=== PATIENT | female | born 1970 | race African-American/Black ===

== ENCOUNTER 2023-04-04 11:35 | Inpatient (IN) | payer MEDICARE, OTHER ==
[2023-04-04] MEDS ORDERED: ASPIRIN 81 MG PO STA (12:26)
[2023-04-04] MEDS ORDERED: NITROGLYCERIN OINT 1 INCH/GM PACKET TOPICAL STA (12:26)
--- NOTE | 2023-04-04 12:42 | ED ---
General Adult HPI - General Chief complaint: Chest Pain Stated complaint: chest pain Time Seen by Provider: 04/04/23 12:00 Source: patient, RN notes reviewed, old records reviewed Mode of arrival: ambulatory Limitations: no limitations - History of Present Illness Initial comments: This is a 52-year-old female presents emergency Department complaining of chest pain radiates to her left shoulder. Patient states this started at the facility that she was standing up. Patient is in rehab for alcohol abuse. Patient states she hasn't had a drink in over a month. Patient states associated with the chest pain and shortness of breath. Patient has also noticed edema of the legs. Patient states she has never had a heart attack in the past. But she has had a stroke 3 years ago. Patient denies any recent fever chills or cough per patient denies any abdominal pain. Patient has any headache patient denies numbness weakness. Patient states she took an aspirin prior to arrival and when she got here the chest pain had resolved. Patient did not take any nitroglycerin. - Related Data Home Medications Medication Instructions Recorded Confirmed Acetaminophen Tab [Tylenol] 650 mg PO Q4H PRN 04/04/23 04/04/23 Atorvastatin Calcium [Lipitor] 40 mg PO HS 04/04/23 04/04/23 Calcium/Magnesium/Zinc/Vitamin D 1 tab PO TID PRN 04/04/23 04/04/23 334/134/5mg Escitalopram [Lexapro] 20 mg PO DAILY 04/04/23 04/04/23 Folic Acid 1 mg PO DAILY 04/04/23 04/04/23 Insulin Regular, Human [Novolin R] See Protocol SQ ACHS 04/04/23 04/04/23 Lipase/Protease/Amylase [Doe Alonso 72,000 unit PO BID 04/04/23 04/04/23 36,000 Unit Capsule] Mirtazapine [Remeron] 15 mg PO HS 04/04/23 04/04/23 OLANZapine [ZyPREXA] 15 mg PO HS 04/04/23 04/04/23 Pantoprazole Sodium [Protonix] 40 mg PO DAILY 04/04/23 04/04/23 Sucralfate [Carafate] 1 gm PO TID-W/MEALS 04/04/23 04/04/23 Thiamine [Vitamin B-1] 100 mg PO DAILY 04/04/23 04/04/23 amLODIPine [Norvasc] 10 mg PO DAILY 04/04/23 04/04/23 busPIRone HCl [Buspar] 10 mg PO TID 04/04/23 04/04/23 levETIRAcetam [Keppra] 500 mg PO BID 04/04/23 04/04/23 traZODone HCL 100 mg PO HS 04/04/23 04/04/23 Allergies Allergy/AdvReac Type Severity Reaction Status Date / Time lisinopril Allergy Anaphylaxis Verified 04/04/23 14:36 /Rash/Hives Review of Systems ROS Statement: Those systems with pertinent positive or pertinent negative responses have been documented in the HPI. ROS Other: All systems not noted in ROS Statement are negative. Past Medical History Past Medical History: Diabetes Mellitus, Hypertension Additional Past Medical History / Comment(s): pancreatitis, ETOH abuse, type II DM History of Any Multi-Drug Resistant Organisms: None Reported Past Surgical History: Bowel Resection Past Psychological History: No Psychological Hx Reported Smoking Status: Current every day smoker, Vaper Past Alcohol Use History: Abuse, Daily Past Drug Use History: Marijuana General Exam - General Exam Comments Initial Comments: GENERAL: Patient is well-developed and well-nourished. Patient is nontoxic and well- hydrated and is in no acute distress. ENT: Neck is soft and supple. No significant lymphadenopathy is noted. Oropharynx is clear. Moist mucous membranes. Neck has full range of motion without eliciting any pain. EYES: The sclera were anicteric and conjunctiva were pink and moist. Extraocular movements were intact and pupils were equal round and reactive to light. Eyelids were unremarkable. PULMONARY: Unlabored respirations. Good breath sounds bilaterally. No audible rales rhonchi or wheezing was noted. CARDIOVASCULAR: There is a regular rate and rhythm without any murmurs gallops or rubs. ABDOMEN: Soft and nontender with normal bowel sounds. No palpable organomegaly was noted. There is no palpable pulsatile mass. SKIN: Skin is clear with no lesions or rashes and otherwise unremarkable. NEUROLOGIC: Patient is alert and oriented x3. Cranial nerves II through XII are grossly intact. Motor and sensory are also intact. Normal speech, volume and content. Symmetrical smile. MUSCULOSKELETAL: Normal extremities with adequate strength and full range of motion. No lower extremity swelling or edema. No calf tenderness. LYMPHATICS: No significant lymphadenopathy is noted PSYCHIATRIC: Normal psychiatric evaluation. Limitations: no limitations Course Vital Signs 04/04/23 11:47 Temperature 97.9 F Pulse Rate 89 Respiratory 16 Rate Blood Pressure 134/101 O2 Sat by Pulse 100 Oximetry Medical Decision Making - Medical Decision Making EKG is interpreted by myself. EKG shows a sinus rhythm at 72 bpm GA interval 140 QRS is 84 QT interval 392 QTC is 422 per patient's EKG shows no ST segment elevation or depression. Was pt. sent in by a medical professional or institution (, PA, COOKER HELPER, urgent care, hospital, or detention...) When possible be specific @ -Patient was sent in by [facility] Did you speak to anyone other than the patient for history (EMS, parent, family, police, friend...)? What history was obtained from this source @ -No Did you review nursing and triage notes (agree or disagree)? Why? @ -I reviewed and agree with nursing and triage notes Were old charts reviewed (outside hosp., previous admission, EMS record, old EKG, old radiological studies, urgent care reports/EKG's, detention records)? Report findings @ -No old charts were reviewed Differential Diagnosis (chest pain, altered mental status, abdominal pain women, abdominal pain men, vaginal bleeding, weakness, fever, dyspnea, syncope, headache, dizziness, GI bleed, back pain, seizure, CVA, palpatations, mental health, musculoskeletal)? @ -Differential Chest Pain: Stable Angina, Unstable Angina, STEMI, NSTEMI Aortic Dissection, Pneumothorax, Musculoskeletal, Esophageal Spasm GERD, Cholecystitis, Pancreatitis, Zoster, this is not meant to be an all-inclusive list. EKG interpreted by me (3pts min.). @ -As above X-rays interpreted by me (1pt min.). @ -Chest x-ray showed no acute abnormality CT interpreted by me (1pt min.). @ -None done U/S interpreted by me (1pt. min.). @ -None done What testing was considered but not performed or refused? (CT, X-rays, U/S, labs)? Why? @ -None What meds were considered but not given or refused? Why? @ -None Did you discuss the management of the patient with other professionals (professionals i.e. , PA, COOKER HELPER, lab, RT, psych nurse, nursing home social worker, belting cutter, teacher, contracts officer, sample case porter)? Give summary @ -I spoke with the [facility] hospitalist agreed to admit the patient admitted the patient wrote admitting orders Was smoking cessation discussed for >3mins.? @ -No Was critical care preformed (if so, how long)? @ -No Were there social determinants of health that impacted care today? How? (Homelessness, low income, unemployed, alcoholism, drug addiction, transportation, low edu. Level, literacy, decrease access to med. care, [facility], rehab)? @ -No Was there de-escalation of care discussed even if they declined (Discuss DNR or withdrawal of care, Hospice)? DNR status @ -No What co-morbidities impacted this encounter? (DM, HTN, Smoking, COPD, CAD, Cancer, CVA, ARF, Chemo, Hep., AIDS, mental health diagnosis, sleep apnea, morbid obesity)? @ -None Was patient admitted / discharged? Hospital course, mention meds given and route, prescriptions, significant lab abnormalities, going to OR and other pertinent info. @ -Patient's lab work came back within normal range. Patient was no longer having any chest pain during the emergency department. Patient received Nitropaste and will receive aspirin and Nitropaste on the floor. I admitted the patient he seems to hospice wrote admitting orders I consulted cardiology. Undiagnosed new problem with uncertain prognosis? @ -No Drug Therapy requiring intensive monitoring for toxicity (Heparin, Nitro, Insulin, Cardizem)? @ -No Were any procedures done? @ -No Diagnosis/symptom? @ -Chest pain Acute, or Chronic, or Acute on Chronic? @ -Acute Uncomplicated (without systemic symptoms) or Complicated (systemic symptoms)? @ -Complicated Side effects of treatment? @ -No Exacerbation, Progression, or Severe Exacerbation? @ -No Poses a threat to life or bodily function? How? (Chest pain, [place], [place], pneumonia, PE, COPD, DKA, ARF, appy, cholecystitis, CVA, Diverticulitis, Homicidal, Suicidal, threat to staff... and all critical care pts) @ -Yes this can lead to an [place] and her cardiac perfusion and end organ dy sfunction - Lab Data Result diagrams: 04/04/23 13:18 04/04/23 13:18 Lab Results 04/04/23 04/04/23 04/04/23 Range/Units 13:18 13:18 13:18 WBC 4.9 (3.8-10.6) k/uL RBC 3.85 (3.80-5.40) m/uL Hgb 11.1 L (11.4-16.0) gm/dL Hct 35.0 (34.0-46.0) % MCV 91.1 (80.0-100.0) fL MCH 29.0 (25.0-35.0) pg MCHC 31.8 (31.0-37.0) g/dL RDW 16.2 H (11.5-15.5) % Plt Count 152 (150-450) k/uL MPV 9.0 Neutrophils % 32 % Lymphocytes % 58 % Monocytes % 4 % Eosinophils % 3 % Basophils % 0 % Neutrophils # 1.6 (1.3-7.7) k/uL Lymphocytes # 2.9 (1.0-4.8) k/uL Monocytes # 0.2 (0-1.0) k/uL Eosinophils # 0.2 (0-0.7) k/uL Basophils # 0.0 (0-0.2) k/uL Hypochromasia Slight Anisocytosis Slight PT 11.1 (9.0-12.0) sec INR 1.1 (<1.2) APTT 25.9 (22.0-30.0) sec Sodium 140 (137-145) mmol/L Potassium 3.4 L (3.5-5.1) mmol/L Chloride 104 (98-107) mmol/L Carbon Dioxide 28 (22-30) mmol/L Anion Gap 8 mmol/L BUN 5 L (7-17) mg/dL Creatinine 0.42 L (0.52-1.04) mg/dL Est GFR (CKD-EPI)AfAm >90 (>60 ml/min/1.73 sqM) Est GFR (CKD-EPI)NonAf >90 (>60 ml/min/1.73 sqM) Glucose 111 H (74-99) mg/dL Calcium 8.1 L (8.4-10.2) mg/dL Magnesium 0.9 L* (1.6-2.3) mg/dL Total Bilirubin 0.4 (0.2-1.3) mg/dL AST 34 (14-36) U/L ALT 18 (4-34) U/L Alkaline Phosphatase 75 (38-126) U/L Troponin I (0.000-0.034) ng/mL NT-Pro-B Natriuret Pep 164 pg/mL Total Protein 5.7 L (6.3-8.2) g/dL Albumin 2.9 L (3.5-5.0) g/dL 04/04/23 Range/Units 13:18 WBC (3.8-10.6) k/uL RBC (3.80-5.40) m/uL Hgb (11.4-16.0) gm/dL Hct (34.0-46.0) % MCV (80.0-100.0) fL MCH (25.0-35.0) pg MCHC (31.0-37.0) g/dL RDW (11.5-15.5) % Plt Count (150-450) k/uL MPV Neutrophils % % Lymphocytes % % Monocytes % % Eosinophils % % Basophils % % Neutrophils # (1.3-7.7) k/uL Lymphocytes # (1.0-4.8) k/uL Monocytes # (0-1.0) k/uL Eosinophils # (0-0.7) k/uL Basophils # (0-0.2) k/uL Hypochromasia Anisocytosis PT (9.0-12.0) sec INR (<1.2) APTT (22.0-30.0) sec Sodium (137-145) mmol/L Potassium (3.5-5.1) mmol/L Chloride (98-107) mmol/L Carbon Dioxide (22-30) mmol/L Anion Gap mmol/L BUN (7-17) mg/dL Creatinine (0.52-1.04) mg/dL Est GFR (CKD-EPI)AfAm (>60 ml/min/1.73 sqM) Est GFR (CKD-EPI)NonAf (>60 ml/min/1.73 sqM) Glucose (74-99) mg/dL Calcium (8.4-10.2) mg/dL Magnesium (1.6-2.3) mg/dL Total Bilirubin (0.2-1.3) mg/dL AST (14-36) U/L ALT (4-34) U/L Alkaline Phosphatase (38-126) U/L Troponin I <0.012 (0.000-0.034) ng/mL NT-Pro-B Natriuret Pep pg/mL Total Protein (6.3-8.2) g/dL Albumin (3.5-5.0) g/dL Disposition Clinical Impression: Chest pain, Hypomagnesemia Disposition: ADMITTED IP TO THIS [facility] Time of Disposition: 14:05
[2023-04-04 13:28] LABS: Anisocytosis Slight; Basophils % (A) 0 %; Eosinophils # (A) 0.2 k/uL (0-0.7); Eosinophils % (A) 3 %; HGB 11.1 gm/dL (11.4-16.0); Hypochromasia Slight; Lymphocytes # (A) 2.9 k/uL (1.0-4.8); Lymphocytes % (A) 58 %; MCHC 31.8 g/dL (31.0-37.0); MCV 91.1 fL (80.0-100.0); Monocytes # (A) 0.2 k/uL (0-1.0); Monocytes % (A) 4 %; Neutrophils # (A) 1.6 k/uL (1.3-7.7); Neutrophils % (A) 32 %; Platelet Count 152 k/uL (150-450); RBC 3.85 m/uL (3.80-5.40); RDW 16.2 % (11.5-15.5); WBC 4.9 k/uL (3.8-10.6)
[2023-04-04 13:47] LABS: INR 1.1 (<1.2); Partial Thromboplastin Time 25.9 sec (22.0-30.0); Prothrombin Time 11.1 sec (9.0-12.0)
[2023-04-04] MEDS ORDERED: NITROGLYCERIN SL TABS 0.4 MG TAB SUBLINGUAL PRN (14:06)
--- NOTE | 2023-04-04 14:08 | XR ---
EXAMINATION TYPE: XR chest 2V DATE OF EXAM: 04/04/2023 COMPARISON: NONE HISTORY: Shortness of breath TECHNIQUE: Frontal and lateral views of the chest are obtained. FINDINGS: Scattered senescent parenchymal changes noted. Hyperinflation compatible with COPD. No evidence for infiltrate. No evidence for atelectasis. Heart size is stable. Mediastinal structures are stable and grossly unremarkable. No evidence for hilar prominence. Degenerative changes dorsal spine. IMPRESSION: 1. No evidence for acute pulmonary disease.
[2023-04-04 14:41] LABS: ALT 18 U/L (4-34); AST 34 U/L (14-36); African American GFR (CKD) >90 (>60 ml/min/1.73 sqM); Albumin 2.9 g/dL (3.5-5.0); Alkaline Phosphatase 75 U/L (38-126); Anion Gap 8 mmol/L; Blood Urea Nitrogen 5 mg/dL (7-17); Calcium 8.1 mg/dL (8.4-10.2); Carbon Dioxide 28 mmol/L (22-30); Chloride 104 mmol/L (98-107); Glucose 111 mg/dL (74-99); Non-African American GFR(CKD) >90 (>60 ml/min/1.73 sqM); Potassium 3.4 mmol/L (3.5-5.1); Sodium 140 mmol/L (137-145); Total Bilirubin 0.4 mg/dL (0.2-1.3); Total Protein 5.7 g/dL (6.3-8.2)
[2023-04-04 14:43] LABS: Magnesium 0.9 mg/dL (1.6-2.3)
[2023-04-04 14:49] LABS: NT-Pro-B-Type Natriuretic Pept 164 pg/mL
[2023-04-04] MEDS: MAGNESIUM SULFATE-D5W PMX 1 GM in DEXTROSE/WATER 1 100ML.BAG IVPB SCH ×4 (16:04→20:53)
[2023-04-04] MEDS: NITROGLYCERIN OINT 1 INCH/GM PACKET TOPICAL SCH (17:16)
[2023-04-04] MEDS ORDERED: ACETAMINOPHEN TAB 325 MG TAB PO PRN (18:19)
[2023-04-04] MEDS ORDERED: NON FORMULARY DRUG (Calcium/Magnesium/Zinc/Vitamin D 334/134/5mg 1 TAB) PO PRN (18:19)
--- NOTE | 2023-04-04 18:21 | P.HPIM ---
History of Present Illness This is a pleasant 53 years old -[place]one[place] female with past medical history of Diabetes Mellitus, Hypertension Patient PCP is out of town however she was in [facility] for alcohol use disorder for rehab since late February about 2 weeks ago. She presents to the hospital because of chest pain started this morning about 4/10 in severity, central radiating to the back, currently improved down to 0/10. The patient but no associated coughing or dyspnea area Also patient has some tenderness in the upper sternal part where her chest pain is. She reports also some little lightheadedness haven't with a chest pain which is improved now. She denies any urinary, GI for the new neurological symptoms. She states she smokes 1-2 cigarettes per day and she was counseled to quit but she declines and she declines the nicotine patch Vitals stable Labs reviewed. CBC is unremarkable except for mild anemia with hemoglobin 11.1. INR 1.1. Troponin less than 0.012 Chest x-ray: No acute process. EKG: Normal sinus rhythm at [address]-T changes. Low voltage Review of Systems Review of systems CONSTITUTIONAL: No fever, no malaise, no fatigue. HEENT: No recent visual problems or hearing problems. Denied any sore throat. CARDIOVASCULAR: No orthopnea, PND, no palpitations, no syncope. PULMONARY: No shortness of breath, no cough, no hemoptysis. GASTROINTESTINAL: No diarrhea, no nausea, no vomiting, no abdominal pain. Normoactive bowel sounds. NEUROLOGICAL: No headaches, no weakness, no numbness. HEMATOLOGICAL: Denies any bleeding or petechiae. GENITOURINARY: Denies any burning micturition, frequency, or urgency. MUSCULOSKELETAL/RHEUMATOLOGICAL: Denies any joint pain, swelling, or any muscle pain. ENDOCRINE: Denies any polyuria or polydipsia. Past Medical History Past Medical History: Diabetes Mellitus, Hypertension Additional Past Medical History / Comment(s): pancreatitis, ETOH abuse, type II DM History of Any Multi-Drug Resistant Organisms: None Reported Past Surgical History: Bowel Resection Past Psychological History: No Psychological Hx Reported Smoking Status: Current every day smoker, Vaper Past Alcohol Use History: Abuse, Daily Past Drug Use History: Marijuana Medications and Allergies Home Medications Medication Instructions Recorded Confirmed Type Acetaminophen Tab [Tylenol] 650 mg PO Q4H PRN 04/04/23 04/04/23 History Atorvastatin Calcium [Lipitor] 40 mg PO HS 04/04/23 04/04/23 History Calcium/Magnesium/Zinc/Vitamin D 1 tab PO TID PRN 04/04/23 04/04/23 History 334/134/5mg Escitalopram [Lexapro] 20 mg PO DAILY 04/04/23 04/04/23 History Folic Acid 1 mg PO DAILY 04/04/23 04/04/23 History Insulin Regular, Human [Novolin R] See Protocol SQ ACHS 04/04/23 04/04/23 History Lipase/Protease/Amylase [Creon Dr 72,000 unit PO BID 04/04/23 04/04/23 History 36,000 Unit Capsule] Mirtazapine [Remeron] 15 mg PO HS 04/04/23 04/04/23 History OLANZapine [ZyPREXA] 15 mg PO HS 04/04/23 04/04/23 History Pantoprazole Sodium [Protonix] 40 mg PO DAILY 04/04/23 04/04/23 History Sucralfate [Carafate] 1 gm PO TID-W/MEALS 04/04/23 04/04/23 History Thiamine [Vitamin B-1] 100 mg PO DAILY 04/04/23 04/04/23 History amLODIPine [Norvasc] 10 mg PO DAILY 04/04/23 04/04/23 History busPIRone HCl [Buspar] 10 mg PO TID 04/04/23 04/04/23 History levETIRAcetam [Keppra] 500 mg PO BID 04/04/23 04/04/23 History traZODone HCL 100 mg PO HS 04/04/23 04/04/23 History Allergies Allergy/AdvReac Type Severity Reaction Status Date / Time lisinopril Allergy Anaphylaxis Verified 04/04/23 14:36 /Rash/Hives Physical Exam Vitals: Vital Signs Temp Pulse Resp BP Pulse Ox 04/04/23 11:47 97.9 F 89 16 134/101 100 Intake and Output 04/03/23 04/04/23 04/04/23 22:59 06:59 14:59 Other: Weight 68.039 kg GENERAL: The patient is alert and oriented x3, not in any acute distress. Well developed, well nourished. HEENT: Pupils are round and equally reacting to light. EOMI. No scleral icterus. No conjunctival pallor. Normocephalic, atraumatic. No pharyngeal erythema. No thyromegaly. CARDIOVASCULAR: S1 and S2 present. No murmurs, rubs, or gallops. -PULMONARY: Chest is clear to auscultation, no wheezing , no crackles. Mild sternal tenderness ABDOMEN: Soft, nontender, nondistended, normoactive bowel sounds. No palpable organomegaly. MUSCULOSKELETAL: No joint swelling or deformity. EXTREMITIES: No cyanosis, clubbing, or pedal edema. NEUROLOGICAL: Gross neurological examination did not reveal any focal deficits. SKIN: No rashes. no petechiae. Results CBC & Chem 7: 04/04/23 13:18 04/04/23 13:18 Labs: Abnormal Lab Results - Last 24 Hours (Table) 04/04/23 Range/Units 13:18 Hgb 11.1 L (11.4-16.0) gm/dL RDW 16.2 H (11.5-15.5) % Assessment and Plan Assessment: Chest pain, most likely musculoskeletal. rule out cardiac causes Severe hypomagnesemia, POA. Secondary to alcohol use disorder Nicotine dependence Anemia, normochromic normocytic recent history of alcohol use disorder, currently patient was in [facility] for alcohol withdrawal rehab Diabetes mellitus Hypertension Plan: Cardiology consult Continue with aspirin Telemetry monitoring. Check echocardiogram replace electrolytes and monitor Mg and K Labs and medication were reviewed.. Continue same treatment. Continue with symptomatic treatment. Resume home medication. Monitor labs and vitals. DVT and GI prophylaxis. Further recommendations as per clinical course of the patient DVT prophylaxis: Subcutaneous heparin GI Prophylaxis: ppi Prognosis is guarded
[2023-04-04] MEDS: LIPASE 20,000/PROTEASE 63,000/AMYLASE 84,000 PO SCH (20:57)
[2023-04-04] MEDS: HEPARIN SODIUM,PORCINE 5,000 UNIT/ML 1 ML VIAL SQ SCH (20:58)
[2023-04-04] MEDS: OLANZapine 7.5 MG TAB PO SCH (20:58)
[2023-04-04] MEDS: levETIRAcetam 500 MG TAB PO SCH ×2 (20:58→20:59)
[2023-04-04] MEDS: ATORVASTATIN 40 MG TAB PO SCH (20:59)
[2023-04-04] MEDS ORDERED: FAMOTIDINE 20 MG/2 ML VIAL IV SCH (21:00)
[2023-04-04] MEDS: MIRTAZAPINE 15 MG TAB PO SCH (21:09)
[2023-04-04] MEDS: busPIRone HCl 10 MG TAB PO SCH (21:09)
[2023-04-05] MEDS: NITROGLYCERIN OINT 1 INCH/GM PACKET TOPICAL SCH ×5 (00:59→23:02)
[2023-04-05 07:53] LABS: Magnesium 1.5 mg/dL (1.6-2.3); Potassium 3.8 mmol/L (3.5-5.1)
[2023-04-05] MEDS ORDERED: amLODIPine 10 MG TAB PO SCH (09:00)
[2023-04-05] MEDS ORDERED: ASPIRIN 325 MG TAB PO SCH (09:00)
--- NOTE | 2023-04-05 09:15 | P.CRDCN ---
History of Present Illness Consult date: 04/05/23 History of present illness: HISTORY OF PRESENTING ILLNESS 52-year-old -[place] female with past medical history of alcohol abuse and tobacco smoker and marijuana abuse who is a resident of her rehab center presented to the hospital with the complaints of worsening swelling for last 4 days. Patient reported that she was apparently feeling well until 2-3 days and since then she has been feeling weak poorly and complaining of shortness of breath along with lower extremity edema. She denies any symptoms of chest pain chest pressure palpitations lightheadedness or dizziness. She is a prior history of small bowel resection. He denies any prior history of diabetes hypertension or cardiac disease. DIAGNOSTICS EKG reveals sinus rhythm, low-voltage, nonspecific interventricular conduction delay. Chest xray no evidence of congestion or acute cardiac permit process. Laboratory reviewed, hemoglobin 11.1, platelets 152, sodium 140, potassium 3.4, magnesium 0.9, BUN 5, creatinine 0.4, troponin 3 are negative, proBNP is 164 hypoalbuminemia. REVIEW OF SYSTEMS 14 point review of system is negative except what is mentioned above in HPI. PHYSICAL EXAMINATION Vital signs reviewed. Head: Normocephalic. Eyes: Sclerae nonicteric. Neck: Brisk carotid upstroke, no jugular venous distention. Lungs: Clear to auscultation. Heart: Regular rate and rhythm, S1-S2, no S3, no murmur or rub. Abdomen: Soft nontender, positive bowel sounds no organomegaly. 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 BP 94/58. Will not introduce any guideline directed medical therapy at this time. We will wait for the echo findings Start Lasix 20 mg IV twice a day Moderate lites. Replace potassium and magnesium as per primary team Past Medical History Past Medical History: Diabetes Mellitus, Hypertension Additional Past Medical History / Comment(s): pancreatitis, ETOH abuse, type II DM History of Any Multi-Drug Resistant Organisms: None Reported Past Surgical History: Bowel Resection Past Psychological History: No Psychological Hx Reported Smoking Status: Current every day smoker, Vaper Past Alcohol Use History: Abuse, Daily Past Drug Use History: Marijuana Medications and Allergies Home Medications Medication Instructions Recorded Confirmed Type Acetaminophen Tab [Tylenol] 650 mg PO Q4H PRN 04/04/23 04/04/23 History Atorvastatin Calcium [Lipitor] 40 mg PO HS 04/04/23 04/04/23 History Calcium/Magnesium/Zinc/Vitamin D 1 tab PO TID PRN 04/04/23 04/04/23 History 334/134/5mg Escitalopram [Lexapro] 20 mg PO DAILY 04/04/23 04/04/23 History Folic Acid 1 mg PO DAILY 04/04/23 04/04/23 History Insulin Regular, Human [Novolin R] See Protocol SQ ACHS 04/04/23 04/04/23 History Lipase/Protease/Amylase [Doe Alonso 72,000 unit PO BID 04/04/23 04/04/23 History 36,000 Unit Capsule] Mirtazapine [Remeron] 15 mg PO HS 04/04/23 04/04/23 History OLANZapine [ZyPREXA] 15 mg PO HS 04/04/23 04/04/23 History Pantoprazole Sodium [Protonix] 40 mg PO DAILY 04/04/23 04/04/23 History Sucralfate [Carafate] 1 gm PO TID-W/MEALS 04/04/23 04/04/23 History Thiamine [Vitamin B-1] 100 mg PO DAILY 04/04/23 04/04/23 History amLODIPine [Norvasc] 10 mg PO DAILY 04/04/23 04/04/23 History busPIRone HCl [Buspar] 10 mg PO TID 04/04/23 04/04/23 History levETIRAcetam [Keppra] 500 mg PO BID 04/04/23 04/04/23 History traZODone HCL 100 mg PO HS 04/04/23 04/04/23 History Allergies Allergy/AdvReac Type Severity Reaction Status Date / Time lisinopril Allergy Anaphylaxis Verified 04/04/23 14:36 /Rash/Hives Physical Exam Vitals: Vital Signs Temp Pulse Resp BP Pulse Ox 04/05/23 04:00 84 17 93/58 98 04/05/23 02:00 90 16 98/62 98 04/04/23 22:00 77 16 119/86 98 04/04/23 19:00 81 18 116/73 99 04/04/23 16:00 81 20 128/89 100 04/04/23 11:47 97.9 F 89 16 134/101 100 Results 04/04/23 13:18 04/05/23 07:12 Cardiac Enzymes 04/04/23 04/04/23 04/04/23 Range/Units 13:18 13:18 14:37 AST 34 (14-36) U/L Troponin I <0.012 <0.012 (0.000-0.034) ng/mL 04/04/23 Range/Units 21:23 AST (14-36) U/L Troponin I <0.012 (0.000-0.034) ng/mL Coagulation 04/04/23 Range/Units 13:18 PT 11.1 (9.0-12.0) sec APTT 25.9 (22.0-30.0) sec CBC 04/04/23 Range/Units 13:18 WBC 4.9 (3.8-10.6) k/uL RBC 3.85 (3.80-5.40) m/uL Hgb 11.1 L (11.4-16.0) gm/dL Hct 35.0 (34.0-46.0) % Plt Count 152 (150-450) k/uL Comprehensive Metabolic Panel 04/04/23 04/05/23 Range/Units 13:18 07:12 Sodium 140 (137-145) mmol/L Potassium 3.4 L 3.8 (3.5-5.1) mmol/L Chloride 104 (98-107) mmol/L Carbon Dioxide 28 (22-30) mmol/L BUN 5 L (7-17) mg/dL Creatinine 0.42 L (0.52-1.04) mg/dL Glucose 111 H (74-99) mg/dL Calcium 8.1 L (8.4-10.2) mg/dL AST 34 (14-36) U/L ALT 18 (4-34) U/L Alkaline Phosphatase 75 (38-126) U/L Total Protein 5.7 L (6.3-8.2) g/dL Albumin 2.9 L (3.5-5.0) g/dL Current Medications Generic Name Dose Route Start Last Admin Trade Name Freq PRN Reason Stop Dose Admin Acetaminophen 650 mg 04/04/23 18:19 Acetaminophen Tab 325 Mg Tab PO Q4H PRN Fever and/ or Pain Amlodipine Besylate 10 mg 04/05/23 09:00 Amlodipine 10 Mg Tab PO DAILY [facility] Lipase/Protease/Amylase 3 each 04/04/23 21:00 04/04/23 20:57 Lipase 20,000/Protease 63,000/Amylase 84,000 PO 3 each BID [facility] Administration Atorvastatin Calcium 40 mg 04/04/23 21:00 04/04/23 20:59 Atorvastatin 40 Mg Tab PO 40 mg HS [facility] Administration Buspirone HCl 10 mg 04/04/23 22:00 04/04/23 21:09 Buspirone Hcl 10 Mg Tab PO 10 mg TID [facility] Administration Escitalopram Oxalate 20 mg 04/05/23 09:00 Escitalopram 20 Mg Tab PO DAILY [facility] Folic Acid 1 mg 04/05/23 09:00 Folic Acid 1 Mg Tab PO DAILY [facility] Heparin Sodium (Porcine) 5,000 unit 04/04/23 21:00 04/04/23 20:58 Heparin Sodium,Porcine 5,000 Unit/Ml 1 Ml Vial SQ 5,000 unit Q12HR [facility] Administration Levetiracetam 500 mg 04/04/23 21:00 04/04/23 20:59 Levetiracetam 500 Mg Tab PO 500 mg BID [facility] Administration Mirtazapine 15 mg 04/04/23 21:00 04/04/23 21:09 Mirtazapine 15 Mg Tab PO 15 mg HS [facility] Administration Nitroglycerin 0.4 mg 04/04/23 14:06 Nitroglycerin Sl Tabs 0.4 Mg Tab SUBLINGUAL Q5M PRN Chest Pain Nitroglycerin 1 inch 04/04/23 18:00 04/05/23 06:15 Nitroglycerin Oint 1 Inch/Gm Packet TOPICAL 1 inch Q6HR [facility] Administration Olanzapine 15 mg 04/04/23 21:00 04/04/23 20:58 Olanzapine 7.5 Mg Tab PO 15 mg HS [facility] Administration Pantoprazole Sodium 40 mg 04/05/23 09:00 Pantoprazole 40 Mg Tablet PO DAILY [facility] Sucralfate 1 gm 04/05/23 07:30 Sucralfate 1 Gm Tab PO TID-W/MEALS [facility] Thiamine HCl 100 mg 04/05/23 09:00 Thiamine 100 Mg Tab PO DAILY [facility] 04/04/23 13:18 04/05/23 07:12
[2023-04-05] MEDS: FOLIC ACID 1 MG TAB PO SCH (09:28)
[2023-04-05] MEDS: ESCITALOPRAM 20 MG TAB PO SCH (09:28)
[2023-04-05] MEDS: HEPARIN SODIUM,PORCINE 5,000 UNIT/ML 1 ML VIAL SQ SCH ×2 (09:28→21:03)
[2023-04-05] MEDS: THIAMINE 100 MG TAB PO SCH (09:28)
[2023-04-05] MEDS: PANTOPRAZOLE 40 MG TABLET PO SCH (09:28)
[2023-04-05] MEDS: SUCRALFATE 1 GM TAB PO SCH ×3 (09:28→17:32)
[2023-04-05] MEDS: FUROSEMIDE 10 MG/ML 2 ML VIAL IV SCH ×2 (09:28→21:03)
[2023-04-05] MEDS: busPIRone HCl 10 MG TAB PO SCH ×3 (09:28→21:13)
[2023-04-05] MEDS: LIPASE 20,000/PROTEASE 63,000/AMYLASE 84,000 PO SCH ×2 (10:21→21:12)
[2023-04-05 11:28] LABS: Chol/HDL Ratio 2.24 Ratio; LDL Cholesterol,Calculated 34.6 mg/dL (0.0-131.0)
[2023-04-05] MEDS ORDERED: POTASSIUM CHLORIDE ER 20 MEQ TAB.ER PO STA (13:07)
--- NOTE | 2023-04-05 13:07 | P.PN ---
Subjective This is a pleasant 53 years old -[place] female with past medical history of Diabetes Mellitus, Hypertension Patient PCP is out of town however she was in [place] for alcohol use disorder for rehab since late February about 2 weeks ago. She presents to the hospital because of chest pain started this morning about 4/10 in severity, central radiating to the back, currently improved down to 0/10. The patient but no associated coughing or dyspnea area Also patient has some tenderness in the upper sternal part where her chest pain is. She reports also some little lightheadedness haven't with a chest pain which is improved now. She denies any urinary, GI for the new neurological symptoms. She states she smokes 1-2 cigarettes per day and she was counseled to quit but she declines and she declines the nicotine patch Vitals stable Labs reviewed. CBC is unremarkable except for mild anemia with hemoglobin 11.1. INR 1.1. Troponin less than 0.012 Chest x-ray: No acute process. EKG: Normal sinus rhythm at [address]-T changes. Low voltage 04/05/2023 Patient looks slightly with fatigue, no chest pain or tenderness today which is completely resolved She has bilateral leg swelling and flood control engineer recommended echocardiogram was started on IV Lasix 20 mg twice daily. She does not have significant withdrawal symptoms We will do check hemoglobin A1c, vitamin B12, folate and TSH Objective - Vital Signs Vital signs: Vital Signs Temp 97.9 F 04/04/23 11:47 Pulse 86 04/05/23 12:34 Resp 18 04/05/23 12:34 BP 106/75 04/05/23 12:34 Pulse Ox 99 04/05/23 12:34 FiO2 Intake & Output 04/04/23 04/05/23 04/05/23 18:59 06:59 18:59 Weight 68.039 kg - Exam GENERAL: The patient is alert and oriented x3, not in any acute distress. Well developed, well nourished. HEENT: Pupils are round and equally reacting to light. EOMI. No scleral icterus. No conjunctival pallor. Normocephalic, atraumatic. No pharyngeal erythema. No thyromegaly. CARDIOVASCULAR: S1 and S2 present. No murmurs, rubs, or gallops. PULMONARY: Chest is clear to auscultation, no wheezing , no crackles. ABDOMEN: Soft, nontender, nondistended, normoactive bowel sounds. No palpable organomegaly. MUSCULOSKELETAL: No joint swelling or deformity. -EXTREMITIES: No cyanosis, clubbing, . Bilateral patellar leg edema. NEUROLOGICAL: Gross neurological examination did not reveal any focal deficits. SKIN: No rashes. no petechiae. - Labs CBC & Chem 7: 04/04/23 13:18 04/05/23 07:12 Labs: Abnormal Lab Results - Last 24 Hours (Table) 04/04/23 04/04/23 04/05/23 Range/Units 13:18 13:18 07:12 Hgb 11.1 L (11.4-16.0) gm/dL RDW 16.2 H (11.5-15.5) % Potassium 3.4 L (3.5-5.1) mmol/L BUN 5 L (7-17) mg/dL Creatinine 0.42 L (0.52-1.04) mg/dL Glucose 111 H (74-99) mg/dL Calcium 8.1 L (8.4-10.2) mg/dL Magnesium 0.9 L* 1.5 L (1.6-2.3) mg/dL Total Protein 5.7 L (6.3-8.2) g/dL Albumin 2.9 L (3.5-5.0) g/dL HDL Cholesterol 38.00 L (40.00-60.00) mg/dL Assessment and Plan Assessment: Bilateral leg swelling and fatigue Chest pain, most likely musculoskeletal. Resolved Severe hypomagnesemia, POA. Secondary to alcohol use disorder Nicotine dependence Anemia, normochromic normocytic recent history of alcohol use disorder, currently patient was in [place] for alcohol withdrawal rehab Diabetes mellitus Hypertension Plan: Cardiology consult Continue with aspirin Check echocardiogram replace electrolytes and monitor Mg and K Continue with IV Lasix. Check TSH, hemoglobin A1c, B12 and folic Labs and medication were reviewed.. Continue same treatment. Continue with symptomatic treatment. Resume home medication. Monitor labs and vitals. DVT and GI prophylaxis. Further recommendations as per clinical course of the patient DVT prophylaxis: Subcutaneous heparin GI Prophylaxis: ppi Prognosis is guarded
[2023-04-05] MEDS ORDERED: MAGNESIUM SULFATE-D5W PMX 1 GM in DEXTROSE/WATER 1 100ML.BAG IVPB ONE (14:00)
[2023-04-05 14:56] LABS: T4, Free (Free Thyroxine) 0.73 ng/dL (0.78-2.19)
[2023-04-05 17:09] LABS: Glucose,Whole Blood 252 mg/dL (70-110)
--- NOTE | 2023-04-05 19:59 | CA ---
Transthoracic Echo Report Name: Madhuri Rich Age: 52 Gender: F : 1970 Exam Date: 04/05/2023 15:10 Exam Location: [facility] Ht (in): 63 Wt (lb): 150 Ordering Physician: Sebastian Dowell MD Attending/Referring Phys: [id number], Delmer Business Relations Manager Balbina Shabazz, [facility] Procedure CPT: Indications: Rule out heart disease Cardiac Hx: Technical Quality: Good Contrast 1: Total Dose (mL): Contrast 2: Total Dose (mL): MEASUREMENTS (Male / Female) Normal Values 2D ECHO LV Diastolic Diameter PLAX 4.1 cm 4.2 - 5.9 / 3.9 - 5.3 cm LV Systolic Diameter PLAX 2.7 cm IVS Diastolic Thickness 1.1 cm 0.6 - 1.0 / 0.6 - 0.9 cm LVPW Diastolic Thickness 1.0 cm 0.6 - 1.0 / 0.6 - 0.9 cm LV Relative Wall Thickness 0.5 RV Internal Dim ED PLAX 2.7 cm LA Systolic Diameter LX 3.7 cm 3.0 - 4.0 / 2.7 - 3.8 cm LV Diastolic Volume MOD 4C 58.4 cm??? LV Systolic Volume MOD 4C 18.7 cm??? LV Ejection Fraction MOD 4C 68.0 % LV Cardiac Index MOD 4C 2035.7 cm???/min???m??? LV Diastolic Length 4C 6.9 cm LV Systolic Length 4C 5.5 cm LV Diastolic Volume MOD 2C 47.4 cm??? LV Systolic Volume MOD 2C 18.9 cm??? LV Ejection Fraction MOD 2C 60.2 % LV Cardiac Index MOD 2C 1463.0 cm???/min???m??? LV Diastolic Length 2C 6.4 cm LV Systolic Length 2C 5.2 cm LA Volume 45.7 cm??? 18 - 58 / 22 - 52 cm??? LA Volume Index 26.0 cm???/m??? 16 - 28 cm???/m??? M-MODE Aortic Root Diameter MM 2.9 cm MV E Point Septal Separation 0.6 cm AV Cusp Separation MM 2.1 cm DOPPLER AV Peak Velocity 124.7 cm/s AV Peak Gradient 6.2 mmHg MV Area PHT 4.0 cm??? Mitral E Point Velocity 91.7 cm/s Mitral A Point Velocity 97.7 cm/s Mitral E to A Ratio 0.9 MV Deceleration Time 189.4 ms MV E' Velocity 9.1 cm/s Mitral E to MV E' Ratio 10.1 TR Peak Velocity 238.4 cm/s TR Peak Gradient 22.7 mmHg Right Ventricular Systolic Press 27.4 mmHg FINDINGS Left Ventricle Left ventricular ejection fraction is estimated at 60-65 %. Left ventricular cavity size normal. Left ventricular wall thickness normal. Right Ventricle Normal right ventricular size. Right ventricular systolic pressure within normal limits. Right Atrium Normal right atrial size. Left Atrium Normal left atrial size. Mitral Valve Structurally normal mitral valve. Trace mitral regurgitation. Aortic Valve Trileaflet aortic valve. No aortic valve stenosis or regurgitation. Tricuspid Valve Structurally normal tricuspid valve. Mild tricuspid regurgitation. Pulmonic Valve Structurally normal pulmonic valve. Trace pulmonic regurgitation. Pericardium No pericardial effusion. Aorta Normal size aortic root and proximal ascending aorta. CONCLUSIONS Preserved LV size and systolic function Previewed by: Dr. Monroe Jin MD (Electronically Signed) Final Date: 05 April 2023 19:58
[2023-04-05 20:30] LABS: Glucose,Whole Blood 280 mg/dL (70-110)
[2023-04-05 20:45] VITALS: RESP 18
[2023-04-05] MEDS: OLANZapine 7.5 MG TAB PO SCH (21:12)
[2023-04-05] MEDS: MIRTAZAPINE 15 MG TAB PO SCH (21:12)
[2023-04-05] MEDS: ATORVASTATIN 40 MG TAB PO SCH (21:12)
[2023-04-06] MEDS ORDERED: DOBUTamine DRIP for NUC MED 500 MG in DEXTROSE/WATER 1 250ML.BAG IV PRN (06:00)
[2023-04-06 06:12] LABS: Glucose,Whole Blood 137 mg/dL (70-110)
[2023-04-06] MEDS: SUCRALFATE 1 GM TAB PO SCH ×3 (06:32→17:20)
[2023-04-06] MEDS: NITROGLYCERIN OINT 1 INCH/GM PACKET TOPICAL SCH ×2 (06:32→13:40)
[2023-04-06 10:25] VITALS: PULSE 89; TEMP 98.2
[2023-04-06 10:39] LABS: African American GFR (CKD) >90 (>60 ml/min/1.73 sqM); Anion Gap 4 mmol/L; Blood Urea Nitrogen 13 mg/dL (7-17); Calcium 7.9 mg/dL (8.4-10.2); Carbon Dioxide 30 mmol/L (22-30); Chloride 103 mmol/L (98-107); Glucose 91 mg/dL (74-99); Magnesium 1.3 mg/dL (1.6-2.3); Non-African American GFR(CKD) >90 (>60 ml/min/1.73 sqM); Potassium 4.2 mmol/L (3.5-5.1); Sodium 137 mmol/L (137-145)
[2023-04-06 12:34] LABS: Glucose,Whole Blood 93 mg/dL (70-110)
[2023-04-06 12:50] VITALS: BMI 20.9
--- NOTE | 2023-04-06 13:18 | CA ---
Dobutamine Stress Echocardiogram Report Madhuri Rich Age: 52 Gender: F : 1970 Exam Date: 04/06/2023 10:37 Exam Location: [facility] Ordering Physician: Mookie Stockton MD ([id number]) Referring Physician: ARIES, Chief Security And Safety Officer: Agatha Chahal RDCS Technologist: Ht (in): 63 Wt (lb): 118 Procedure CPT: Indication: LV function ICD-9 Codes: Rhythm: Patient History: Atypical angina Cardiac Medications: Medications in past 24 hours: Contrast: Total Dose (mL): Stress Results Protocol: Dobutamine Peak Dose (???g/kg/min): 30 Duration (min:sec): Atropine:(mg) Target HR: 143 Double Product: 32721 Resting HR: 81 Resting BP: 108 / 80 Peak HR: 145 Peak BP: 149 / 84 Max Predicted HR: 168 86 % Max Predicted HR Stress Summary: BP Response: Normal Reason for Termination: Exceeded target heart rate (85% max predicted) Cardiac Symptoms: Test terminated after reaching target heart rate (85% max predicted) ECG Analysis Resting EKG: Stress EKG: Arrhythmia: Echo Analysis Base Echo Analysis: Low Echo Anaylsis: Peak Echo Analysis: Recovery Echo: MEASUREMENTS (Male/Female) Normal Values CONCLUSIONS No ECG or echocardiographic evidence for ischemia on his dobutamine stress echo Normal heart and blood pressure response No arrhythmias. Dr. Monroe Jin MD (Electronically Signed) Final Date: 06 April 2023 13:17
[2023-04-06] MEDS: PANTOPRAZOLE 40 MG TABLET PO SCH (13:55)
[2023-04-06] MEDS: levETIRAcetam 500 MG TAB PO SCH (13:55)
[2023-04-06] MEDS: THIAMINE 100 MG TAB PO SCH (13:55)
[2023-04-06] MEDS: ESCITALOPRAM 20 MG TAB PO SCH (13:55)
[2023-04-06] MEDS: FOLIC ACID 1 MG TAB PO SCH (13:55)
[2023-04-06] MEDS: busPIRone HCl 10 MG TAB PO SCH ×2 (13:56→17:20)
[2023-04-06] MEDS: HEPARIN SODIUM,PORCINE 5,000 UNIT/ML 1 ML VIAL SQ SCH (13:56)
[2023-04-06] MEDS: LIPASE 20,000/PROTEASE 63,000/AMYLASE 84,000 PO SCH (13:56)
[2023-04-06] MEDS: FUROSEMIDE 10 MG/ML 2 ML VIAL IV SCH (13:56)
[2023-04-06] MEDS ORDERED: LEVOTHYROXINE 25 MCG TAB PO SCH (14:32)
[2023-04-06] MEDS ORDERED: MAGNESIUM SULFATE-D5W PMX 1 GM in DEXTROSE/WATER 1 100ML.BAG IVPB SCH (15:00)
[2023-04-06] MEDS ORDERED: MAGNESIUM OXIDE 400 MG TAB PO STA (16:15)
[2023-04-06 16:57] LABS: Glucose,Whole Blood 251 mg/dL (70-110)
--- NOTE | 2023-04-06 17:52 | P.PN ---
Subjective Progress Note Date: 04/06/23 Progress note Patient is seen and examined at bedside the same. Her echocardiogram and dobutamine echo stress test are nonrevealing. Patient's lower extremity swelling has resolved. I feel that this is most likely related to her amlodipine use. I do not recommend her to go home on Lasix. 52-year-old -[place] female with past medical history of alcohol abuse and tobacco smoker and marijuana abuse who is a resident of her rehab center presented to the hospital with the complaints of worsening swelling for last 4 days. Patient reported that she was apparently feeling well until 2-3 days and since then she has been feeling weak poorly and complaining of shortness of breath along with lower extremity edema. She denies any symptoms of chest pain chest pressure palpitations lightheadedness or dizziness. She is a prior history of small bowel resection. He denies any prior history of diabetes hypertension or cardiac disease. DIAGNOSTICS EKG reveals sinus rhythm, low-voltage, nonspecific interventricular conduction delay. Chest xray no evidence of congestion or acute cardiac permit process. Laboratory reviewed, hemoglobin 11.1, platelets 152, sodium 140, potassium 3.4, magnesium 0.9, BUN 5, creatinine 0.4, troponin 3 are negative, proBNP is 164 hypoalbuminemia. REVIEW OF SYSTEMS 14 point review of system is negative except what is mentioned above in HPI. PHYSICAL EXAMINATION Vital signs reviewed. Head: Normocephalic. Eyes: Sclerae nonicteric. Neck: Brisk carotid upstroke, no jugular venous distention. Lungs: Clear to auscultation. Heart: Regular rate and rhythm, S1-S2, no S3, no murmur or rub. Abdomen: Soft nontender, positive bowel sounds no organomegaly. Extremities: 2+ pitting edema in bilateral lower extremity ASSESSMENT Fatigue and mild shortness of breath New swelling in bilateral lower extremity Hypomagnesemia Hypokalemia History of alcohol abuse, last alcohol use in January 2023 History of marijuana use History of tobacco use PLAN Her echocardiogram and dobutamine echo stress test are nonrevealing. Patient's lower extremity swelling has resolved. I feel that this is most likely related to her amlodipine use. I do not recommend her to go home on Lasix. Patient is okay to be discharged from cardiac vessel standpoint. Patient's swelling in lower extremities noncardiac and most likely related to her hypoalbuminemia, alcohol use, hypothyroidism and muscle disuse atrophy Objective - Vital Signs Vital signs: Vital Signs Temp 98.2 F 04/06/23 08:00 Pulse 89 04/06/23 14:00 Resp 18 04/06/23 08:00 BP 119/80 04/06/23 08:00 Pulse Ox 97 04/06/23 08:00 FiO2 Intake & Output 04/05/23 04/06/23 04/06/23 18:59 06:59 18:59 Intake Total 10 840 Output Total 1050 800 Balance -1040 40 Weight 53.6 kg Intake: IV 10 0.9 10 Oral 840 Output: Urine 1050 800 Other: Voiding Method Toilet # Voids 1 # Bowel Movements 1 - Labs CBC & Chem 7: 04/04/23 13:18 04/06/23 09:13 Labs: Abnormal Lab Results - Last 24 Hours (Table) 04/05/23 04/05/23 04/06/23 Range/Units 13:14 20:28 06:07 POC Glucose (mg/dL) 280 H 137 H (70-110) mg/dL Calcium (8.4-10.2) mg/dL Magnesium (1.6-2.3) mg/dL Folate 34.50 H (4.40-31.00) ng/mL 04/06/23 04/06/23 Range/Units 09:13 16:53 POC Glucose (mg/dL) 251 H (70-110) mg/dL Calcium 7.9 L (8.4-10.2) mg/dL Magnesium 1.3 L (1.6-2.3) mg/dL Folate (4.40-31.00) ng/mL
[2023-04-06 18:57] VITALS: BP 120/82
--- NOTE | 2023-04-06 22:10 | P.DS ---
Providers Date of admission: 04/04/23 14:06 Attending physician: Pacheco Dean Consults: 04/04/23 14:06 Consult Physician Urgent Consulting Provider: [facility] Consult Reason/Comments: Chest pain Do you want consulting provider notified?: Yes Primary care physician: Stated None Hospital Course: Diagnoses: Bilateral leg swelling secondary to Norvasc which is stopped and swelling improved with Lasix which is stopped upon discharge Chest pain, most likely musculoskeletal. Resolved completely over the last 2 days New onset hypothyroidism, levothyroxine was started for the patient with re commendation to follow up with jailor as an outpatient and she agrees Severe hypomagnesemia, POA. Secondary to alcohol use disorder Fatigue secondary to above improved Nicotine dependence Anemia, normochromic normocytic recent history of alcohol use disorder, currently patient was in [place] for alcohol withdrawal rehab Diabetes mellitus Hypertension Hospital course: This is a pleasant 53 years old -[place] female with past medical history of Diabetes Mellitus, Hypertension Patient PCP is out of town however she was in [place] for alcohol use disorder for rehab since late February about 2 weeks ago. She presents to the hospital because of chest pain started of one-day duration. Patient developed by printing gray cloth tender and had negative stress test. That her chest pain resolved. Also patient had bilateral leg swelling, echocardiogram was obtained and showed preserved ejection fraction, she was on Norvasc 10 mg daily which was stopped and her leg swelling improved with Lasix which can be stopped. I told the patient to stop taking Norvasc because of the side effects of leg edema and she agrees. Blood pressure on the low side and she does not need more blood pressure medication and patient was instructed to keep monitoring her blood pressure with her primary care doctor and she agrees. On the day of discharge patient had good appetite, no chest pain no dyspnea. No other new complaints. Patient agrees to go home today. I discussed the case with the printing gray cloth tender who cleared her for discharge. Her magnesium was slightly low on the day of discharge and was replaced orally. Patient does not have I light and she does not want to wait. I line therefore a prescription of oral magnesium as provided for the patient with recommendation for close outpatient follow-up and she agrees as well. Problems and management plan were discussed with the patient and he verbalized understanding and acceptance Patient was found stable and can be discharged home in guarded prognosis however he needs follow-up as an outpatient. Patient was instructed to follow up with PCP Saige Sawyer (the name of the PCP as provided to me by the patient herself ) the patient agrees patient was instructed to follow up with printing gray cloth tender Dr. Gee within one week and patient agrees Patient was instructed to follow up with jailor Dr. Reinoso in 1-2 weeks after discharge and she agrees Physical exam Gen: patient is a AAOx3, no distress CVS: S1-S2, RRR, no murmur Lungs: B/L CTA, no wheezing Abdomen: soft, no distention, no tenderness, positive bowel sounds Extremity: no leg edema or induration Time spent more than 35 minutes Plan - Discharge Summary Discharge Rx Participant: Yes New Discharge Prescriptions: New Levothyroxine Sodium [Synthroid] 25 mcg PO DAILY@0630 30 Days #30 tab Magnesium Oxide [Mag-Ox] 400 mg PO TID 5 Days #15 tablet Continue Calcium/Magnesium/Zinc/Vitamin D 334/134/5mg 1 tab PO TID PRN PRN Reason: Muscle Spasm traZODone HCL 100 mg PO HS Thiamine [Vitamin B-1] 100 mg PO DAILY Pantoprazole Sodium [Protonix] 40 mg PO DAILY OLANZapine [ZyPREXA] 15 mg PO HS Mirtazapine [Remeron] 15 mg PO HS levETIRAcetam [Keppra] 500 mg PO BID Folic Acid 1 mg PO DAILY Escitalopram [Lexapro] 20 mg PO DAILY Acetaminophen Tab [Tylenol] 650 mg PO Q4H PRN PRN Reason: Fever And/ Or Pain Insulin Regular, Human [Novolin R] See Protocol SQ ACHS busPIRone HCl [Buspar] 10 mg PO TID Sucralfate [Carafate] 1 gm PO TID-W/MEALS Lipase/Protease/Amylase [Doe Alonso 36,000 Unit Capsule] 72,000 unit PO BID Atorvastatin Calcium [Lipitor] 40 mg PO HS Discontinued amLODIPine [Norvasc] 10 mg PO DAILY Discharge Medication List Acetaminophen Tab [Tylenol] 650 mg PO Q4H PRN 04/04/23 [History] Atorvastatin Calcium [Lipitor] 40 mg PO HS 04/04/23 [History] Calcium/Magnesium/Zinc/Vitamin D 334/134/5mg 1 tab PO TID PRN 04/04/23 [History] Escitalopram [Lexapro] 20 mg PO DAILY 04/04/23 [History] Folic Acid 1 mg PO DAILY 04/04/23 [History] Insulin Regular, Human [Novolin R] See Protocol SQ ACHS 04/04/23 [History] Lipase/Protease/Amylase [Doe Alonso 36,000 Unit Capsule] 72,000 unit PO BID 04/04/23 [History] Mirtazapine [Remeron] 15 mg PO HS 04/04/23 [History] OLANZapine [ZyPREXA] 15 mg PO HS 04/04/23 [History] Pantoprazole Sodium [Protonix] 40 mg PO DAILY 04/04/23 [History] Sucralfate [Carafate] 1 gm PO TID-W/MEALS 04/04/23 [History] Thiamine [Vitamin B-1] 100 mg PO DAILY 04/04/23 [History] busPIRone HCl [Buspar] 10 mg PO TID 04/04/23 [History] levETIRAcetam [Keppra] 500 mg PO BID 04/04/23 [History] traZODone HCL 100 mg PO HS 04/04/23 [History] Levothyroxine Sodium [Synthroid] 25 mcg PO DAILY@0630 30 Days #30 tab 04/06/23 [Rx] Magnesium Oxide [Mag-Ox] 400 mg PO TID 5 Days #15 tablet 04/06/23 [Rx] Follow up Appointment(s)/Referral(s): Salomón Arroyo MD [REFERRING] - 1 Week (thyroid disease doctor, jailor ) None,Stated [Primary Care Provider] - 1-2 days Ambulatory/Diagnostic Orders: Magnesium [LAB.AMB] Time Frame: 3 Days, Location: None Selected Activity/Diet/Wound Care/Special Instructions: [place] [phone] heart healthy diet activity is restricted till you see your doctor we recommend to monitor your blood pressure closely with your doctor please we recommend you follow up with your primary care doctor Saige Holt,please call to make appointment in one week ( you have the contact information as you informed the medical team) Discharge Disposition: HOME SELF-CARE
--- NOTE | 2023-04-10 16:28 | CDI ---
Documentation Clarification Form Date: 04/10/2023 04:12:59 PM From: Kristen Arzola RN, CCDS Email: [email or web address] Admit Date: 04/04/2023 02:06:00 PM Patient Name: Madhuri Rich Visit Number: [id number] Discharge Date: 04/06/2023 06:47:00 PM ATTENTION: The Clinical Documentation Specialists (CDI) and [facility] Coding Staff appreciate your assistance in clarifying documentation. Please respond to the clarification below the line at the bottom and electronically sign. The CDI & [facility] Coding staff will review the response and follow-up if needed. Please note: Queries are made part of the Legal Health Record. If you have any questions, please contact the author of this message via ITS. Dr. Cortes E Sheet Your patient has the documented symptom of chest pain. Additional clarification regarding the etiology/cause of this symptom is requested. Patient C/O: chest pain History/Risk factors: HTN, DM, alcohol use disorder in rehab. Presented with chest pain. Clinical Indicators: H&P: "patient has some tenderness in the upper sternal part where her chest pain is." 04/05 IM: "Also patient has some tenderness in the upper sternal part where her chest pain is. Chest pain, most likely musculoskeletal. Resolved" 04/06 Cardiology: "Her echocardiogram and dobutamine echo stress test are nonrevealing." Discharge summary: "Chest pain, most likely musculoskeletal. Resolved completely over the last 2 days." Labs: negative troponins Treatment: ASA 325mg daily, replace electrolytes and monitor labs Cardiology Consult: "Considering patient's history of alcohol abuse lower extremity edema, I suspect she might be having alcohol-induced cardiomyopathy." Please provide additional clarification regarding the etiology/cause of the chest pain. [ ] Chest pain due to Costochondritis [ ] Chest pain due to other condition, please specify [ ] Unable to determine dx:Chest pain due to Costochondritis MTDD
== END 2023-04-06 18:47 | disposition home or self-care (01) | DRG 206 ==
LOC: EC 11:35 → OBSVTOIN 14:06 → 6NMEDSUR 14:06 → 3SCARD 15:11
PROVIDERS: ADMIT Hospitalist; ATTEND Hospitalist
DX: M94.0 Chondrocostal junction syndrome [Tietze] (principal); F10.239 Alcohol dependence with withdrawal, unspecified; E83.42 Hypomagnesemia; D64.9 Anemia, unspecified; I10 Essential (primary) hypertension; E87.6 Hypokalemia; R53.83 Other fatigue; M79.89 Other specified soft tissue disorders; E03.9 Hypothyroidism, unspecified; Z79.890 Hormone replacement therapy; G71.00 Muscular dystrophy, unspecified; I08.1 Rheumatic disorders of both mitral and tricuspid valves; F17.290 Nicotine dependence, other tobacco product, uncomplicated; E88.09 Other disorders of plasma-protein metabolism, not elsewhere classified; T46.1X5A Adverse effect of calcium-channel blockers, initial encounter; X58.XXXA Exposure to other specified factors, initial encounter; Z79.899 Other long term (current) drug therapy; Z86.73 Personal history of transient ischemic attack (TIA), and cerebral infarction without residual deficits; Z88.8 Allergy status to other drugs, medicaments and biological substances; Z87.19 Personal history of other diseases of the digestive system
CPT/HCPCS: 36415; 71046; 80048; 80053; 80061; 82607; 82746; 83036; 83735; 83880; 84132; 84439; 84443; 84484; 85025; 85610; 85730; 93005; 93306; 93351; 96365; 96366; 96372; 96375; 99285